=== PATIENT | female | born 2000 | race African-American/Black ===

== ENCOUNTER 2021-08-18 11:42 | Inpatient (IN) | payer OTHER, SELFPAY ==
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
[2021-08-18 20:21] VITALS: BP 96/55; PULSE 93; TEMP 36.8; O2SAT 100
[2021-08-18] MEDS: Mirtazapine 30 MG TABLET PO (20:22)
[2021-08-19 08:14] VITALS: BP 85/52; PULSE 95; RESP 16; TEMP 36.8; O2SAT 100
[2021-08-19] MEDS: QUEtiapine Fumarate 50 MG TABLET PO (13:10)
--- NOTE | 2021-08-19 14:07 | P.PNPSI_ITS ---
Subjective Subjective Date of Service: 08/19/21 Reason For Visit: SI Interim History: pt reports she is feeling good about her eating currently. she does report she had a hard time falling asleep last night, but once she was asleep she was OK. her mood is OK. denies SI. per staff, polite, cooperative. feeling tricked into being here. slept OK overnight. Mental Status Exam Mental Status Exam Narrative: dressed in hospital scrubs, disheveled. cooperative with interview. PMR. speech monotonous and slowed, decr in amount. nml volume, mildly increased latency. thoughts linear and logical, no evidence of delusions or paranoia. affect blunted, hypo-intense, non-labile. mood OK. 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 denies HI/AVH. Diagnostics Vital Signs (24Hr): Vital Signs - 24 hr 08/18/21 20:21 08/19/21 08:14 Temperature 98.2 F 98.3 F Pulse Rate 93 95 Respiratory Rate 16 Blood Pressure 96/55 L 85/52 L Pulse Oximetry 100 100 Medications Medications Current Medications Acetaminophen (Acetaminophen 325 Mg Tablet) 650 mg PO Q6H PRN PRN Reason: Headache/Pain Mild Scale (1-3) Al Hydroxide/Mg Hydroxide (Magnesium Hydrox/Alum Hydrox 30 Ml Oral.Susp) 30 ml PO Q6H PRN PRN Reason: Heartburn/Nausea Hydroxyzine HCl (Hydroxyzine Hcl 25 Mg Tablet) 25 mg PO BEDTIME PRN PRN Reason: Anxiety Magnesium Hydroxide (Milk Of Magnesia 30 Ml Oral.Susp) 30 ml PO DAILY PRN PRN Reason: Constipation Mirtazapine (Mirtazapine 30 Mg Tablet) 30 mg PO BEDTIME [facility] Last Admin: 08/18/21 20:22 Dose: 30 mg Documented by: Mirtazapine (Mirtazapine 15 Mg Tablet) 15 mg PO BEDTIME PRN PRN Reason: insomnia Nicotine Polacrilex (Nicotine Polacrilex 2 Mg Gum) 2 mg BUCCAL Q2H PRN PRN Reason: Nicotine Cravings Quetiapine Fumarate (Quetiapine Fumarate 50 Mg Tablet) 50 mg PO Q4H PRN PRN Reason: anxiety or insomnia Last Admin: 08/19/21 13:10 Dose: 50 mg Documented by: Allergies Allergies Allergy/AdvReac Type Severity Reaction Status Date / Time No Known Allergies Allergy Unverified 08/18/21 12:10 Assessment & Plan Assessment & Plan (1) Major depressive disorder: Status: Acute Code(s): F32.9 - Major depressive disorder, single episode, unspecified Assessment and Plan: increased HS remeron from 15 mg to 30 mg, with another 15 mg available PRN. added seroquel 50 mg Q4H PRN anxiety or insomnia; appetite stimulant and sedating agent. Greater than 50% of the session was spent on counseling and/or coordination of care Reason for contiued inpatient stay Substantial Risk for: harm to self, inability to function and med/psych deco mpensation
[2021-08-19 20:03] VITALS: BP 96/58; PULSE 95; TEMP 36.6; O2SAT 100
[2021-08-19] MEDS: Mirtazapine 30 MG TABLET PO (20:27)
[2021-08-20 10:11] VITALS: BP 101/49; PULSE 91; RESP 16; TEMP 36.9; O2SAT 100
[2021-08-20] MEDS: Sertraline HCL 50 MG TABLET PO (11:32)
--- NOTE | 2021-08-20 14:44 | P.PNPSI_ITS ---
Subjective Subjective Date of Service: 08/20/21 Reason For Visit: SI Interim History: pt reports she slept well last night, mood well. denies SI, MRE at the other hospital before she was sent here. discuss medications for depression and PTSD. R/B of SSRIs discussed, including sexual side effects. pt agreeable to trial of sertraline, to start at 50 mg daily as of today. pt would like discharge, hoping for saturday. per staff, overwhelmed and scared. took seroquel PRN anxiety, which she found helpful. Mental Status Exam Mental Status Exam Narrative: dressed in hospital scrubs, adequately groomed. cooperative with interview. PMR. speech monotone and slowed, decr in amount. nml volume, mildly increased latency. thoughts linear and logical, no evidence of delusions or paranoia. affect blunted, hypo-intense, non-labile. mood well. 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 denies HI/AVH. Diagnostics Vital Signs (24Hr): Vital Signs - 24 hr 08/19/21 20:03 08/20/21 10:11 Temperature 97.9 F 98.4 F Pulse Rate 95 91 Respiratory Rate 16 Blood Pressure 96/58 L 101/49 L Pulse Oximetry 100 100 Medications Medications Current Medications Acetaminophen (Acetaminophen 325 Mg Tablet) 650 mg PO Q6H PRN PRN Reason: Headache/Pain Mild Scale (1-3) Al Hydroxide/Mg Hydroxide (Magnesium Hydrox/Alum Hydrox 30 Ml Oral.Susp) 30 ml PO Q6H PRN PRN Reason: Heartburn/Nausea Hydroxyzine HCl (Hydroxyzine Hcl 25 Mg Tablet) 25 mg PO BEDTIME PRN PRN Reason: Anxiety Magnesium Hydroxide (Milk Of Magnesia 30 Ml Oral.Susp) 30 ml PO DAILY PRN PRN Reason: Constipation Mirtazapine (Mirtazapine 30 Mg Tablet) 30 mg PO BEDTIME [facility] Last Admin: 08/19/21 20:27 Dose: 30 mg Documented by: Mirtazapine (Mirtazapine 15 Mg Tablet) 15 mg PO BEDTIME PRN PRN Reason: insomnia Nicotine Polacrilex (Nicotine Polacrilex 2 Mg Gum) 2 mg BUCCAL Q2H PRN PRN Reason: Nicotine Cravings Quetiapine Fumarate (Quetiapine Fumarate 50 Mg Tablet) 50 mg PO Q4H PRN PRN Reason: anxiety or insomnia Last Admin: 10/02/21 13:10 Dose: 50 mg Documented by: Sertraline HCl (Sertraline Hcl 50 Mg Tablet) 50 mg PO DAILY JOSE Last Admin: 08/20/21 11:32 Dose: 50 mg Documented by: Allergies Allergies Allergy/AdvReac Type Severity Reaction Status Date / Time No Known Allergies Allergy Unverified 08/18/21 12:10 Assessment & Plan Assessment & Plan (1) Major depressive disorder: Status: Acute Code(s): F32.9 - Major depressive disorder, single episode, unspecified Assessment and Plan: increased HS remeron from 15 mg to 30 mg, with another 15 mg available PRN. added seroquel 50 mg Q4H PRN anxiety or insomnia; appetite stimulant and sedati ng agent. started sertraline for depression/PTSD. planning for discharge saturday. Greater than 50% of the session was spent on counseling and/or coordination of care Reason for contiued inpatient stay Substantial Risk for: harm to self, inability to function and med/psych decompensation
[2021-08-20 20:09] VITALS: BP 102/64; PULSE 92; RESP 18; TEMP 36.9; O2SAT 100
[2021-08-20] MEDS: Mirtazapine 30 MG TABLET PO (21:00)
[2021-08-21 08:50] VITALS: BP 99/51; PULSE 89; RESP 18; TEMP 37; O2SAT 99
[2021-08-21] MEDS: Sertraline HCL 50 MG TABLET PO (09:00)
--- NOTE | 2021-08-21 11:37 | PC.NURSE ---
Pt refused flu shot.
--- NOTE | 2021-08-21 12:41 | HO.PSYCHPN ---
Subjective Subjective Date of Service: 08/21/21 Reason For Visit: SI Interim History: pt reports she is doing OK. feels she was helpful today, did something good: helping her roommate calm down from being upset this morning. happy with current medications regimen. would like to discharge back to residential in [facility]. no other complaints or requests. per staff, calm, cooperative, some anxiety. withdrawn, isolative. more visible in milieu on eves, playing cards with peers. slept well, no issues. Mental Status Exam Mental Status Exam Narrative: dressed in hospital scrubs, adequately groomed. cooperative with interview. PMR. speech monotone and slowed, decr in amount. nml volume, mildly increased latency. thoughts linear and logical, no evidence of delusions or paranoia. affect blunted, hypo-intense, non-labile. mood OK. 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 denies HI/AVH. Diagnostics Vital Signs (24Hr): Vital Signs - 24 hr 08/20/21 20:09 08/21/21 08:50 Temperature 98.5 F 98.6 F Pulse Rate 92 89 Respiratory Rate 18 18 Blood Pressure 102/64 99/51 L Pulse Oximetry 100 99 Medications Medications Current Medications Acetaminophen (Acetaminophen 325 Mg Tablet) 650 mg PO Q6H PRN PRN Reason: Headache/Pain Mild Scale (1-3) Al Hydroxide/Mg Hydroxide (Magnesium Hydrox/Alum Hydrox 30 Ml Oral.Susp) 30 ml PO Q6H PRN PRN Reason: Heartburn/Nausea Hydroxyzine HCl (Hydroxyzine Hcl 25 Mg Tablet) 25 mg PO BEDTIME PRN PRN Reason: Anxiety Magnesium Hydroxide (Milk Of Magnesia 30 Ml Oral.Susp) 30 ml PO DAILY PRN PRN Reason: Constipation Mirtazapine (Mirtazapine 30 Mg Tablet) 30 mg PO BEDTIME JOSE Last Admin: 08/20/21 21:00 Dose: 30 mg Documented by: Mirtazapine (Mirtazapine 15 Mg Tablet) 15 mg PO BEDTIME PRN PRN Reason: insomnia Nicotine Polacrilex (Nicotine Polacrilex 2 Mg Gum) 2 mg BUCCAL Q2H PRN PRN Reason: Nicotine Cravings Quetiapine Fumarate (Quetiapine Fumarate 50 Mg Tablet) 50 mg PO Q4H PRN PRN Reason: anxiety or insomnia Last Admin: 08/19/21 13:10 Dose: 50 mg Documented by: Sertraline HCl (Sertraline Hcl 50 Mg Tablet) 50 mg PO DAILY JOSE Last Admin: 08/21/21 09:00 Dose: 50 mg Documented by: Allergies Allergies Allergy/AdvReac Type Severity Reaction Status Date / Time No Known Allergies Allergy Unverified 08/18/21 12:10 Assessment & Plan Assessment & Plan (1) Major depressive disorder: Status: Acute Code(s): F32.9 - Major depressive disorder, single episode, unspecified Assessment and Plan: increased HS remeron from 15 mg to 30 mg, with another 15 mg available PRN. added seroquel 50 mg Q4H PRN anxiety or insomnia; appetite stimulant and sedating agent. started sertraline for depression/PTSD. planning for discharge saturday. Greater than 50% of the session was spent on counseling and/or coordination of care Reason for contiued inpatient stay Substantial Risk for: inability to function and rapid decompensation
[2021-08-21 15:36] VITALS: BMI 15.4
[2021-08-21 18:00] VITALS: BP 110/67; PULSE 91; RESP 18; TEMP 36.9; O2SAT 99
[2021-08-21] MEDS: Mirtazapine 30 MG TABLET PO (21:03)
[2021-08-22 06:00] VITALS: BP 116/72; PULSE 96; RESP 18; TEMP 36.6; O2SAT 98
[2021-08-22] MEDS: Sertraline HCL 50 MG TABLET PO (09:22)
--- NOTE | 2021-08-22 10:39 | P.PNPSI_ITS ---
Subjective Subjective Date of Service: 08/22/21 Reason For Visit: SI Interim History: pt reports she continues to do well, mood fine and anxiety in and out but manageable. no complaints or requests otherwise. planning to discharge back to the [facility] tomorrow, but states she is not in any rosales. per staff, spending time in milieu coloring, playing board games. good sleep. anx/dep 02/25. discharge tomorrow. Mental Status Exam Mental Status Exam Narrative: dressed in hospital scrubs, adequately groomed. cooperative with interview. PMR. speech monotone and slowed, decr in amount. nml volume, mildly increased latency. thoughts linear and logical, no evidence of delusions or paranoia. affect blunted, hypo-intense, non-labile. mood fine. no SI/HI/AVH expressed. Diagnostics Vital Signs (24Hr): Vital Signs - 24 hr 08/21/21 18:00 08/22/21 06:00 Temperature 98.4 F 97.8 F Pulse Rate 91 96 Respiratory Rate 18 18 Blood Pressure 110/67 116/72 Pulse Oximetry 99 98 Body Mass Index 15.4 Medications Medications Current Medications Acetaminophen (Acetaminophen 325 Mg Tablet) 650 mg PO Q6H PRN PRN Reason: Headache/Pain Mild Scale (1-3) Al Hydroxide/Mg Hydroxide (Magnesium Hydrox/Alum Hydrox 30 Ml Oral.Susp) 30 ml PO Q6H PRN PRN Reason: Heartburn/Nausea Hydroxyzine HCl (Hydroxyzine Hcl 25 Mg Tablet) 25 mg PO BEDTIME PRN PRN Reason: Anxiety Magnesium Hydroxide (Milk Of Magnesia 30 Ml Oral.Susp) 30 ml PO DAILY PRN PRN Reason: Constipation Mirtazapine (Mirtazapine 30 Mg Tablet) 30 mg PO BEDTIME [facility] Last Admin: 08/21/21 21:03 Dose: 30 mg Documented by: Mirtazapine (Mirtazapine 15 Mg Tablet) 15 mg PO BEDTIME PRN PRN Reason: insomnia Nicotine Polacrilex (Nicotine Polacrilex 2 Mg Gum) 2 mg BUCCAL Q2H PRN PRN Reason: Nicotine Cravings Quetiapine Fumarate (Quetiapine Fumarate 50 Mg Tablet) 50 mg PO Q4H PRN PRN Reason: anxiety or insomnia Last Admin: 08/19/21 13:10 Dose: 50 mg Documented by: Sertraline HCl (Sertraline Hcl 50 Mg Tablet) 50 mg PO DAILY JOSE Last Admin: 08/22/21 09:22 Dose: 50 mg Documented by: Allergies Allergies Allergy/AdvReac Type Severity Reaction Status Date / Time No Known Allergies Allergy Unverified 08/18/21 12:10 Assessment & Plan Assessment & Plan (1) Major depressive disorder: Status: Acute Code(s): F32.9 - Major depressive disorder, single episode, unspecified Assessment and Plan: increased HS remeron from 15 mg to 30 mg, with another 15 mg available PRN. added seroquel 50 mg Q4H PRN anxiety or insomnia; appetite stimulant and sedating agent. started sertraline for depression/PTSD. planning for discharge saturday. Greater than 50% of the session was spent on counseling and/or coordination of care Reason for contiued inpatient stay Substantial Risk for: harm to self, inability to function and rapid decompensation
[2021-08-22] MEDS: QUEtiapine Fumarate 50 MG TABLET PO ×2 (15:10→20:35)
[2021-08-22] MEDS: Artificial Tears 15 ML DROPS 2 DROP EYE-RIGHT (16:52)
[2021-08-22 21:00] VITALS: BP 91/52; PULSE 103; TEMP 36.8; O2SAT 100
[2021-08-22] MEDS: hydrOXYzine HCL 25 MG TABLET PO (21:59)
[2021-08-22] MEDS: Mirtazapine 30 MG TABLET PO (22:00)
[2021-08-23 09:35] VITALS: BP 101/55; PULSE 101; RESP 16; TEMP 36.9; O2SAT 100
[2021-08-23] MEDS: Sertraline HCL 50 MG TABLET PO (09:37)
--- NOTE | 2021-08-23 09:43 | MHC.CLN ---
F/U REPORTS THAT IS EATING WELL DURING ADMISSION. LIKES ENSURE. CONTINUE REGULAR DIET PLUS ENSURE BID (700 KCAL, 40 G PROTEIN).
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
--- NOTE | 2021-08-23 13:01 | PC.NURSE ---
PT aware and ready for discharge. Pt repots good mood, affect is bright. PT denies SI/HI, denies hallucinations. PT reports improvement in her anxiety and denies depression. Discharge instructions discussed, all questions answered. PT declined referral for PCP and was encouraged to make an appointment when she can. Belongings returned, pt ambulated off unit with steady gait.
== END 2021-08-23 13:01 | disposition home or self-care (01) | DRG 754 ==
PROVIDERS: Admitting Provider Psychiatry & Neurology Psychiatry; Visit Provider Psychiatry & Neurology Psychiatry
DX: F32.9 Major depressive disorder, single episode, unspecified (principal); R45.851 Suicidal ideations; Z79.899 Other long term (current) drug therapy